=== PATIENT | female | born 1955 | race Caucasian/White ===

== ENCOUNTER 2021-12-02 13:20 | Emergency (ER) | payer MEDICARE, MEDICAID, SELFPAY ==
[2021-12-02 13:35] VITALS: BP 149/90; PULSE 72; RESP 16; TEMP 36.5; O2SAT 98
--- NOTE | 2021-12-02 13:41 | ED.URI ---
HPI - URI/Sore Throat General Chief Complaint: Upper Respiratory Infection Stated Complaint: Sore Throat Time Seen by Provider: 12/02/21 13:41 Source: patient Mode of arrival: ambulatory Limitations: no limitations History of Present Illness HPI Narrative: 66-year-old female presents with complaint of fatigue, body aches, headache, congestion, cough, nausea for 3 days. States that her granddaughter who lives with her tested positive for COVID 5 days ago. Denies chest pain and shortness of breath. Vomited once today. Is not taking any [id number] medications to treat her symptoms. All systems reviewed and negative except as noted above. Related Data Home Medications Medication Instructions Recorded Confirmed ergocalciferol (vitamin D2) 1,250 1,250 mcg PO WEEKLY 12/02/21 12/02/21 mcg (50,000 unit) capsule (Vitamin D2) escitalopram oxalate 20 mg tablet 20 mg PO DAILY 12/02/21 12/02/21 hydrochlorothiazide 12.5 mg tablet 12.5 mg PO DAILY 12/02/21 12/02/21 olmesartan 40 mg tablet 40 mg PO DAILY 12/02/21 12/02/21 omeprazole 40 mg capsule,delayed 40 mg PO BID 12/02/21 12/02/21 release oxycodone-acetaminophen 5 mg-325 1 tablet PO Q12H 12/02/21 12/02/21 mg tablet Allergies Allergy/AdvReac Type Severity Reaction Status Date / Time codeine Allergy Hives Verified 12/02/21 13:49 Sulfa (Sulfonamide Allergy Hives Verified 12/02/21 13:49 Antibiotics) tramadol Allergy Hives Verified 12/02/21 13:49 Review of Systems Review of Systems: CONSTITUTIONAL: Reports chills, or sweats. Unknown if she has had fever. EYES: Denies visual changes, redness, or discharge. ENT: Reports rhinorrhea, congestion. Denies sore throat, or otalgia. CARDIOVASCULAR: Denies chest pain, palpitations, or edema. RESPIRATORY: Reports cough. Denies dyspnea. GASTROINTESTINAL: Denies abdominal pain, nausea, vomiting, or diarrhea. GENITOURINARY: Denies dysuria or hematuria. SKIN: Denies rash or itching. MUSCULOSKELETAL: Denies back pain, joint pain. Reports myalgia. NEUROLOGIC: Reports headache. Denies numbness, or weakness. PSYCHIATRIC: Denies anxiety or depression. All other systems reviewed are negative, except as documented in HPI. PMFSH Comments At time of signature, agree with nursing past medical, surgical, social and family history. There is no relevant family history pertinent to the presenting complaint. Exam Narrative: GENERAL: This is a well-nourished, well-developed patient. Patient ill-appearing but no distress. HEAD: normocephalic, atraumatic. EYES: PERRL. Sclera clear/white. Vision is grossly intact. EARS: External ears normal, auditory canals clear and without drainage, TMs normal without perforation. Hearing grossly intact. NOSE: External nose normal with no obvious nasal discharge, nares without redness, no rhinorrhea. THROAT: Mucous membranes moist, posterior pharynx clear. NECK: Neck supple, non-tender without lymphadenopathy, masses or thyromegaly. CARDIOVASCULAR: Regular rate and rhythm without murmurs, gallops, or rubs. RESPIRATORY: Clear to auscultation. Breath sounds equal bilaterally. No wheezes, rales, or rhonchi. GASTROINTESTINAL: Abdomen soft, non-tender, nondistended. Bowel sounds are active. No hepato-splenomegaly, or palpable masses. No guarding. SKIN: warm, Dry, intact with no suspicious lesions or rash, good texture and turgor. NEURO: awake, alert, and oriented to person, place and time. There were no obvious focal neurologic abnormalities. EXTREMITIES: No joint tenderness, effusion, or edema noted. Course Course Level of Care: Express Care Visit Vital Signs Vital signs: Vital Signs Temperature 36.5 C 12/02/21 13:35 Pulse Rate 72 12/02/21 13:35 Respiratory Rate 16 12/02/21 13:35 Blood Pressure 149/90 H 12/02/21 13:35 Pulse Oximetry 98 12/02/21 13:35 Oxygen Delivery Room Air 12/02/21 13:35 Temperature 36.5 C 12/02/21 13:35 Pulse Rate 72 12/02/21 13:35 Respirator
== END 2021-12-02 14:03 | disposition home or self-care (01) ==
PROVIDERS: Emergency Provider Nurse Practitioner Family; PCP Family Medicine
DX: J06.9 Acute upper respiratory infection, unspecified (principal); Z20.822 Contact with and (suspected) exposure to COVID-19; E78.00 Pure hypercholesterolemia, unspecified; I10 Essential (primary) hypertension; K21.9 Gastro-esophageal reflux disease without esophagitis; Z86.14 Personal history of Methicillin resistant Staphylococcus aureus infection; F32.A Depression, unspecified
CPT/HCPCS: 87426; 99213; C9803; G0463

== ENCOUNTER 2022-04-30 10:53 | Emergency (ER) | payer MEDICARE, MEDICAID, SELFPAY ==
[2022-04-30 10:57] VITALS: BP 143/75; PULSE 66; RESP 16; TEMP 36.4; O2SAT 98
--- NOTE | 2022-04-30 11:24 | ED.SKABFB ---
HPI - Skin/Abscess/Foreign Bdy General Chief complaint: Skin/Abscess/Foreign Body Stated complaint: something on nose Time Seen by Provider: 04/30/22 11:25 Source: patient and RN notes reviewed Mode of arrival: ambulatory Limitations: no limitations History of Present Illness HPI narrative: 66-year-old female presents concern for painful area inside her right nostril. Reports she has just been treated with acyclovir for shingles which she finished. She reports she had shingles on abdomen. She reports she woke up in middle night with painful area nostril. She denies fever, headache, other redness or swelling to the face. MD complaint: rash Related Data Home Medications Medication Instructions Recorded Confirmed ergocalciferol (vitamin D2) 1,250 1,250 mcg PO WEEKLY 12/02/21 04/30/22 mcg (50,000 unit) capsule (Vitamin D2) escitalopram oxalate 20 mg tablet 20 mg PO DAILY 12/02/21 04/30/22 hydrochlorothiazide 12.5 mg tablet 12.5 mg PO DAILY 12/02/21 04/30/22 olmesartan 40 mg tablet 40 mg PO DAILY 12/02/21 04/30/22 omeprazole 40 mg capsule,delayed 40 mg PO BID 12/02/21 04/30/22 release buprenorphine 10 mcg/hour weekly See Rx Instructions .Route .COMPLEX 04/30/22 04/30/22 transdermal patch fluoxetine 20 mg capsule 20 mg PO DAILY 04/30/22 04/30/22 rosuvastatin 10 mg tablet 10 mg PO DAILY 04/30/22 04/30/22 Allergies Allergy/AdvReac Type Severity Reaction Status Date / Time codeine Allergy Hives Verified 04/30/22 11:07 Sulfa (Sulfonamide Allergy Hives Verified 04/30/22 11:07 Antibiotics) tramadol Allergy Hives Verified 04/30/22 11:07 Review of Systems Review of Systems: CONSTITUTIONAL: Denies malaise, chills, sweats, or fever. EYES: Denies redness, or discharge. ENT: Denies rhinorrhea, congestion, swollen lips, swollen tongue. CARDIOVASCULAR: Denies chest pain, palpitations, or edema. RESPIRATORY: Denies cough or dyspnea. GASTROINTESTINAL: Denies abdominal pain, nausea, vomiting SKIN: Reports a painful area inside her right nostril MUSCULOSKELETAL: Denies joint pain or myalgia. NEUROLOGIC: Denies headache. All systems reviewed & are unremarkable except as noted in HPI and below PMFSH Comments At time of signature, agree with nursing past medical, surgical, social and family history. There is no relevant family history pertinent to the presenting complaint Exam Narrative: GENERAL: Well-appearing, well-nourished, and in no acute distress. HEAD: Normocephalic, atraumatic. EYES: PERRLA, conjunctivae clear, and EOMI. ENT: Mucous membranes moist. NECK: Supple. No lymphadenopathy CHEST: Clear to auscultation. No respiratory distress. HEART: Regular rate and rhythm. SKIN: Warm, dry. Honey-colored crusted area noted inside the distal right nare small amount of surrounding erythema. No significant edema, induration, fluctuation NEURO: Alert and oriented x3. PSYCH: Normal mood and affect Course Course Emergency Course: Patient is aware of diagnosis, understands and agrees to treatment plan. Anticipatory guidance given. Patient agrees to follow-up as directed and is aware of reasons to seek care at the emergency department. Portions of this record may have been created with voice recognition software Level of Care: Express Care Visit Vital Signs Vital signs: Vital Signs Temperature 97.5 F L 04/30/22 10:57 Pulse Rate 66 04/30/22 10:57 Respiratory Rate 16 04/30/22 10:57 Blood Pressure 143/75 H 04/30/22 10:57 Pulse Oximetry 98 04/30/22 10:57 Oxygen Delivery Room Air 04/30/22 10:57 Temperature 97.5 F L 04/30/22 10:57 Pulse Rate 66 04/30/22 10:57 Respiratory Rate 16 04/30/22 10:57 Blood Pressure 143/75 H 04/30/22 10:57 Pulse Oximetry 98 04/30/22 10:57 Oxygen Delivery Room Air 04/30/22 10:57 Reviewed. MDM - Skin/Abscess/Foreign Bdy MDM Narrative Medical decision making narrative: Does not appear at this time to be erythema multiforme, bullous, SJS, TEN;
== END 2022-04-30 11:40 | disposition home or self-care (01) ==
PROVIDERS: Emergency Provider Nurse Practitioner; PCP Family Medicine
DX: L98.9 Disorder of the skin and subcutaneous tissue, unspecified (principal)
CPT/HCPCS: 87070; 87147; 87181; 87186; 87205; 99213; G0463